=== PATIENT | female | born 1945 | race Asian ===

== ENCOUNTER 2016-08-23 14:27 | Outpatient (CLI) | payer MEDICARE ==
--- NOTE | 2016-08-24 13:25 | Mammography Report ---
BILATERAL DIGITAL SCREENING MAMMOGRAM with CAD: 08/23/16 14:27:00 CLINICAL: Routine screening. COMPARISON: 02/26/13 FINDINGS: There are bilateral scattered areas of fibroglandular density.Few bilateral scattered calcifications with benign morphology.No mass, architectural distortion or suspicious calcifications. IMPRESSION: No mammographic evidence of malignancy. BI-RADS CATEGORY: 2 - - Benign RECOMMENDATION: Routine mammographic screening in one year. COMMENT: Patient follow-up letters are generated by our [employer] application.
== END 2016-08-23 14:28 | disposition home or self-care (01) ==
LOC: SPVWC 14:27
DX: Z12.31 Encounter for screening mammogram for malignant neoplasm of breast (principal)
CPT/HCPCS: 77067; G0202